=== PATIENT | female | born 1970 | race Caucasian/White ===

== ENCOUNTER 2016-10-06 16:53 | Emergency (ER) | payer OTHER ==
[~2016-10-06] VITALS: Ht 172.7 cm; Wt 97.0 kg
[~2016-10-06 16:53] MED LIST: BUPR-197 PO; LORTA5 PO; MULT-65 PO
[2016-10-06 16:55] VITALS: BP 146/109; PULSE 72; RESP 16; TEMP 97.6; O2SAT 100
[2016-10-06] MEDS ORDERED: BUPR100CR PO (17:05)
[2016-10-06] MEDS ORDERED: LEVO25TA4 PO (17:05)
[2016-10-06] MEDS ORDERED: CEPH-460 PO (17:15)
[2016-10-06] MEDS ORDERED: PRED20 PO (17:15)
[2016-10-06] MEDS ORDERED: TRIAM.1%T TOPICAL (17:15)
--- NOTE | 2016-10-06 17:16 | PD ---
HPI Chief Complaint: Skin Problem Time Seen by Provider: 17:11 Travel History International Travel<30 days: No Contact w/Intl Traveler<30days: No Traveled to known affect area: No History of Present Illness HPI 46-year-old female presents to the emergency department for evaluation of rash to her left inner wrist that she noticed last Wednesday, but worsened today. She states it is extremely itchy. She denies any pain. Patient has no chronic medical problems and takes no medications. She has been using hydrocortisone cream [id number] without improvement. No fevers or chills. She has no other complaints. PFSH Past Medical History Blood Disorders: No Depression: Yes Cancer: No Cardiovascular Problems: No Chemotherapy: No Diminished Hearing: No Endocrine: No GERD: Yes Genitourinary: No Immune Disorder: No Musculoskeletal: No Neurologic: No Psychiatric: No Reproductive: No Respiratory: No Radiation Therapy: No Thyroid Disease: Yes Tetanus Vaccination: > 5 Years Influenza Vaccination: No ?: Not Tubal Ligation: Yes (2005) Past Surgical History Abdominal Surgery: Yes (BERNARDO SANTANA 2005) AICD: No Arteriovenous Shunt: No Gynecologic Surgery: Yes (ENDOMETRIAL ABLATION 2005) Hysterectomy: Yes Insulin Pump: No Joint Replacement: No Pacemaker: No Tonsillectomy: Yes (CHILDHOOD) Social History Alcohol Use: Yes (OCCASIONALLY) Tobacco Use: No Substance Use: No Allergies-Medications (Allergen,Severity, Reaction): Coded Allergies: No Known Allergies (Verified , 10/06/16) Reported Meds & Prescriptions Reported Meds & Active Scripts Active Reported Levothyroxine (Levothyroxine Sodium) 25 Mcg Tab 25 Mcg PO DAILY Wellbutrin SR 12 HR (Bupropion HCl) 100 Mg Tab 100 Mg PO Q12HR Review of Systems Except as stated in HPI: all other systems reviewed are Neg Physical Exam Narrative GENERAL: Well-nourished, well-developed female patient, ambulatory. Afebrile. SKIN: Focused skin assessment warm/dry. Patient has 2 vesicles noted to left inner wrist with mild surrounding erythema. HEAD: Normocephalic. Atraumatic. EYES: No scleral icterus. No injection or drainage. NECK: Supple, trachea midline. No JVD or lymphadenopathy. CARDIOVASCULAR: Regular rate and rhythm without murmurs, gallops, or rubs. RESPIRATORY: Breath sounds equal bilaterally. No accessory muscle use. Lungs sounds are clear to auscultation. GASTROINTESTINAL: Abdomen soft, non-tender, nondistended. MUSCULOSKELETAL: No cyanosis, or edema. BACK: Nontender without obvious deformity. No CVA tenderness. Data Data Last Documented VS Vital Signs Date Time Temp Pulse Resp B/P Pulse Ox O2 Delivery O2 Flow Rate FiO2 10/06/16 16:55 97.6 72 16 146/109 100 MDM Medical Decision Making Medical Screen Exam Complete: Yes Emergency Medical Condition: Yes Medical Record Reviewed: Yes Differential Diagnosis Contact dermatitis versus herpes zoster versus tinea Narrative Course 46-year-old female presents to the emergency department for evaluation of rash to her left inner wrist that she has had for 6 days. She states is extremely itchy. She denies any pain or burning sensation. Patient has 2 vesicles with mild surrounding erythema. Symptoms are not consistent with herpes zoster as patient states his itching and has no pain. She had no pain before rash. I do believe this is a contact dermatitis. Patient will be discharged with a prescription for triamcinolone cream, prednisone, Keflex for possible underlying cellulitis. The patient verbalizes agreement and understanding. She is to follow with her primary care physician. Diagnosis Primary Impression: Contact dermatitis Qualified Code: L24.9 - Irritant contact dermatitis, unspecified trigger Referrals: Primary Care Physician call for appointment Patient Instructions: Contact Dermatitis (ED), General Instructions Additional Instructions: Take antibiotic as directed until gone. Use triamcinolone cream as directed. Take prednisone as directed. Follow-up with your primary care physician. Return to the emergency department for any acute worsening of symptoms. Med/Other Pt SpecificInfo: Prescription(s) given Scripts Cephalexin (Keflex)500 Mg Ofu374 Mg PO Q6H 7 Days Ref 0 Prov:Delmi Dempsey 10/06/16 Prednisone 20 Mg Tab40 Mg PO DAILY 4 Days Ref 0 Prov:Delmi Dempsey 10/06/16 Triamcinolone Topical 0.1 % Oint1 Applic TOPICAL BID #1 GM Ref 0 Prov:Delmi Dempsey 10/06/16 Disposition: 01 DISCHARGE HOME Condition: Stable Delmi Dempsey October 06, 2016 17:16
== END 2016-10-06 17:36 | disposition home or self-care (01) ==
LOC: PHEFT 16:53
DX: L24.9 Irritant contact dermatitis, unspecified cause (principal); F32.9 Major depressive disorder, single episode, unspecified; K21.9 Gastro-esophageal reflux disease without esophagitis; Z79.899 Other long term (current) drug therapy
CPT/HCPCS: 99282